=== PATIENT | female | born 2000 | race Caucasian/White ===

== ENCOUNTER 2023-01-13 08:20 | Emergency (ER) | payer OTHER ==
[~2023-01-13] VITALS: Ht 162.6 cm; Wt 59.1 kg
[2023-01-13 08:23] VITALS: TEMP 98
[2023-01-13 09:23] VITALS: BP 122/70; PULSE 76
== END 2023-01-13 09:23 | disposition home or self-care (01) ==
LOC: COL.ER 08:20
DX: H10.9 Unspecified conjunctivitis (principal); Z28.310 Unvaccinated for COVID-19